=== PATIENT | female | born 1955 | race Caucasian/White ===

== ENCOUNTER 2020-02-05 18:38 | Emergency (ER) | payer OTHER ==
[~2020-02-05] VITALS: Ht 162.6 cm; Wt 108.9 kg
[~2020-02-05 18:38] MED LIST: ATENOLOL 50MG T50 MG PO; CELEXA20 MG PO; LEVOTHYROXINE 0.1 MG PO; OMEPRAZOLE 20 M20 M1 PO
[2020-02-05] MEDS ORDERED: HYDROCHLOROTHIA25 M2 PO (18:50)
[2020-02-05] MEDS ORDERED: NORCO 5-325 TA1 EAC2 PO (21:09)
[2020-02-05] MEDS ORDERED: NAPROSYN500 MG PO (21:09)
[2020-02-05 21:21] VITALS: BP 146/68
== END 2020-02-05 21:23 | disposition home or self-care (01) ==
LOC: M.ERS 18:38
DX: R07.81 Pleurodynia (principal); R07.89 Other chest pain; G43.909 Migraine, unspecified, not intractable, without status migrainosus; Z90.710 Acquired absence of both cervix and uterus; Z98.51 Tubal ligation status; Z90.49 Acquired absence of other specified parts of digestive tract; Z88.8 Allergy status to other drugs, medicaments and biological substances